=== PATIENT | male | born 1990 | race Caucasian/White ===

== ENCOUNTER 2020-06-16 13:32 | Emergency (ER) | payer BC, SELFPAY ==
[2020-06-16 13:33] VITALS: BP 148/94; PULSE 94; RESP 16; TEMP 37.1; O2SAT 99; BMI 42.3
[2020-06-16 14:03] VITALS: BP 152/89; PULSE 79; O2SAT 96
--- NOTE | 2020-06-16 14:07 | XR_ITS ---
PROCEDURE: XR CHEST PORTABLE CLINICAL HISTORY: cough COMPARISON: No exams were available for comparison FINDINGS: The cardiomediastinal silhouette and pulmonary vascularity are within normal limits. There is some patchy density in the left upper lobe. This may be related to overlying scapula and vessels. Upright PA and lateral chest may confirm. Deformity noted of the left 2nd rib IMPRESSION: Patchy density left upper lobe which may be due to summation artifact and could be confirmed with upright PA and lateral chest Dictated by: Avtar Barkley MD 06/16/2020 17:24 Avtar Barkley MD in [place] 06/16/2020 17:24
--- NOTE | 2020-06-16 14:09 | HMH.EDGENADL ---
ED Disposition Clinical Impression: Atypical pneumonia, COVID-19 Disposition: Home, Self-Care Condition on Discharge: Fair Instructions: Pneumonia-Adult, DI for Atypical Pneumonia, DI for COVID-19 (Suspected or Confirmed ) Additional Instructions: You have been evaluated for nausea and vomiting, as well as COVID-19. I have concern for a bacterial pneumonia. Please take azithromycin as prescribed. Use Phenergan for nausea and vomiting. Follow-up with your primary care physician. Return to the emergency department if you have new or worsening symptoms. Prescriptions: Promethazine HCl [Phenergan 12.5mg tablet] 12.5 mg PO Q8H PRN #12 tab PRN Reason: Vomiting Transmission Status: Pending to [facility] # Azithromycin [Z-[place] 250mg Tab*] 250 mg PO UD DOSE PK #6 tab Transmission Status: Pending to [facility] # Referrals: Sergei Chopra [Primary Care Provider] - Time of Disposition: 15:54 - Critical Care Critical Care Time: No Attestation: On 06/16/20, the high probability of a clinically significant, sudden or life threatening deterioration of the following system(s) required my full and direct attention, intervention and personal management. The time I documented below is in addition to time spent performing reported procedures but includes the following listed in this critical care notation. Medical Decision Making - Medical Records Medical records reviewed: Yes: I reviewed the patient's medical records. - Jayy Inquiry Pt receiving controlled substance: No Vital Signs: 06/16/20 13:33 06/16/20 14:03 Temperature 98.8 F Temperature Source Oral Pulse Rate [Right] 94 H 79 Respiratory Rate 16 Blood Pressure [Right Arm] 148/94 H 152/89 H Blood Pressure Mean [Right Arm] 112 110 Blood Pressure Source [Right Arm] Automatic Cuff Automatic Cuff Blood Pressure Position [Right Arm] Sitting Sitting 02 Sat by Pulse Oximetry 99 96 Oxygen Delivery Method Room Air Room Air - Lab Data Lab Results 06/16/20 14:39: WBC 4.1 L, RBC 5.72, Hgb 16.7, Hct 49.0, MCV 85.7, MCH 29.2, MCHC 34.1, RDW 13.7, Plt Count 143, MPV 9.0, Neut % (Auto) 53.2, Lymph % (Auto) 36.8, [place] % (Auto) 7.6, Eos % (Auto) 0.6, Baso % (Auto) 1.7, Neut # (Auto) 2.2, Lymph # (Auto) 1.5, [place] # (Auto) 0.3, Eos # (Auto) 0.0, Baso # (Auto) 0.1 06/16/20 14:39: Sodium 138, Potassium 4.3, Chloride 100, Carbon Dioxide 29, Anion Gap 13.3, BUN 14, Creatinine 1.20, Estimated Creat Clear 105, Estimated GFR 71, Est GFR ( Amer) 86, Glucose 80, Calcium 9.8, Ferritin 62.7, Total Bilirubin 0.6, AST 104 H, ALT 148 H, Alkaline Phosphatase 79, Troponin I < 0.01, C-Reactive Protein 5.3 H, Total Protein 7.9, Albumin 4.6, Globulin 3.3 H, Albumin/Globulin Ratio 1.4 Result diagrams: 06/16/20 14:39 06/16/20 14:39 Orders (Tests/Meds): ED MEDICATIONS Discontinued Medications Generic Name Dose Route Start Last Admin Trade Name Freq PRN Reason Stop Dose Admin Sodium Chloride 1,000 mls @ 999 mls/hr 06/16/20 14:15 06/16/20 14:31 Sod Chlor 0.9% 1000ml Bag IV 06/16/20 15:15 999 mls/hr .[id number] RANJANA Administration Promethazine HCl 12.5 mg 06/16/20 14:08 06/16/20 14:30 Promethazine Hcl 12.5mg Tablet PO 06/16/20 14:09 12.5 mg ONCE ONE Administration ORDERS Category Date Time Status CXR --portable [XR chest portable] Stat Exams 06/16/20 14:07 Taken Troponin I Q3H Lab 06/16/20 17:15 Ordered Troponin I Q3H Lab 06/16/20 20:15 Ordered EKG Request [ECG Request by /Gaurav] Stat Y 06/16/20 14:08 Ordered Medical Decision Narrative: In summary this is a 30-year-old male with diagnosis of COVID-19 presenting to the emergency department with nausea and vomiting. Patient clinically stable on arrival. Vital signs within normal limits. Initial oxygen saturation is 96%. No tachypnea or tachycardia. Most likely diagnosis is persistent COVID-19 infection. Cannot exclude dehydration, hyper inflammatory sy
[2020-06-16 14:56] LABS: Basophils # 0.1 K/mm3 (0-0.2); Basophils % 1.7 % (0.1-2.0); Eosinophils % 0.6 % (0.1-12.0); Hemoglobin 16.7 g/dL (14.1-18.0); Lymphocytes # 1.5 K/mm3 (0.7-4.5); Lymphocytes % 36.8 % (10-50); Mean Corpuscular HGB Conc 34.1 g/dL (31.8-35.4); Mean Corpuscular Hemoglobin 29.2 pg (27.0-31.2); Mean Corpuscular Volume 85.7 fl (80-94); Monocytes # 0.3 K/mm3 (0.1-1.0); Monocytes % 7.6 % (1.7-9.3); Neutrophils # 2.2 K/mm3 (1.8-7.8); Neutrophils % 53.2 % (37.0-80.0); Platelet Count 143 K/mm3 (142-424); Red Blood Count 5.72 M/mm3 (4.60-6.20); Red Cell Distribution Width 13.7 % (11.5-17.5); White Blood Count 4.1 K/mm3 (4.8-10.8)
[2020-06-16 15:08] LABS: Alanine Aminotransferase 148 U/L (12-78); Albumin Level 4.6 g/dl (3.5-5.0); Albumin/Globulin Ratio 1.4 (1.1-1.8); Alkaline Phosphatase 79 U/L (38-126); Anion Gap 13.3 mEq/L (5-15); Aspartate Amino Transferase 104 U/L (17-59); Bilirubin,Total 0.6 mg/dl (0.2-1.3); Blood Urea Nitrogen 14 mg/dl (9-20); Calcium 9.8 mg/dl (8.4-10.2); Carbon Dioxide 29 mmol/L (22.0-30.0); Creatinine Clearance Estimated 105 mL/min (50-200); Estimated Glomerular Filt Rate 71 ml/min (>60); GFR (African American) 86 ML/MIN (>60); Globulin 3.3 g/dL (1.3-3.2); Glucose 80 mg/dl (74-100); Potassium 4.3 mmoL/L (3.5-5.1); Total Protein,Serum 7.9 g/dl (6.3-8.2)
[2020-06-16 15:10] LABS: Chloride 100 mmol/L (98-107)
[2020-06-16 15:11] LABS: Sodium 138 mmol/L (136-145)
[2020-06-16 15:15] LABS: C-Reactive Protein 5.3 mg/L (0-4)
[2020-06-16 15:25] LABS: Troponin I < 0.01 ng/ml (0.00-0.034)
[2020-06-16 15:52] LABS: Ferritin 62.7 ng/ml (17.9-464)
[2020-06-16 16:49] VITALS: BP 142/78; PULSE 87; RESP 16; TEMP 36.6; O2SAT 98
== END 2020-06-16 16:52 | disposition home or self-care (01) ==
PROVIDERS: Emergency Provider Emergency Medicine; PCP Internal Medicine
DX: J18.9 Pneumonia, unspecified organism (principal); U07.1 COVID-19
CPT/HCPCS: 71045; 80053; 82728; 84484; 85025; 86140; 96365; 99283

== ENCOUNTER 2020-08-24 13:04 | Emergency (ER) | payer BC, SELFPAY ==
[2020-08-24 13:30] VITALS: BP 107/79; PULSE 87; RESP 19; TEMP 36.9; O2SAT 98; BMI 42.3
--- NOTE | 2020-08-24 14:05 | HMH.EDUTC ---
[facility] [place] Impression: Strep throat Disposition: Home, Self-Care Condition on Discharge: Good Instructions: DI for Strep Throat, Strep Throat, Strep Throat (Alternative Therapy), Amoxicillin Additional Instructions: *Monitor Temp, Over the counter Motrin or Tylenol as directed/as needed Tylenol every 4 hours and Motrin every 6 hours (as long as your family doctor has told you that you can take it) for fever or pain. and straight to ER if unable to lower temp less than 101.0 after medication given *Warm salt water gargles may help to soothe the throat *Throat Lozenges *Warm fluids like tea with honey may help to soothe the throat *Sleep elevated *Humidifier/Vaporizer If you did not take Penicillin shot or was unable to, start taking antibiotic immediately and make sure that you take it for the FULL length of time although you should start to feel better in 24-48 hours *change toothbrush and toothpaste 24-48 hours after starting to take antibiotics so you do not reinfect yourself Monitor Temp. Tylenol and/or Ibuprofen as needed. ER if fever is no less than 101 despite alternating Tylenol and Ibuprofen * Encourage fluids, water, Gatorade, powerade, pedialyte if infant/toddler/or child *Cold fluids, popsicles and ice cream may feel good on his throat Follow up IMMEDIATELY for new or worsening symptoms or no Noticeable improvement over the next 48-72 hours. 911 for difficulty breathing or swallowing Prescriptions: Amoxicillin [Amoxicillin 500mg Cap] 500 mg PO BID 10 Days #20 cap Transmission Status: Pending to [id number] Referrals: Sergei Chopra [Primary Care Provider] - As needed Forms: Work/School Release Time of Disposition: 14:11 Medical Decision Making - Jayy Inquiry Pt receiving controlled substance: No Jayy was queried for this patient: No Vital Signs: 08/24/20 13:30 Temperature 98.4 F Temperature Source Oral Pulse Rate [Right Brachial] 87 Respiratory Rate 19 Blood Pressure [Right Arm] 107/79 L Blood Pressure Mean [Right Arm] 88 Blood Pressure Source [Right Arm] Automatic Cuff Blood Pressure Position [Right Arm] Sitting 02 Sat by Pulse Oximetry 98 Oxygen Delivery Method Room Air - Lab Data Lab results reviewed: Yes: I reviewed the patient's lab results. Medical Decision Narrative: Patient state that he is allergic to Cefaclor but has taken Amoxicillin in the past without reactions or complications [facility] [place] - General Stated complaint: sore throat Time Seen by Provider: 08/24/20 14:06 Mode of Arrival: Ambulatory Source of Information: Patient Limitations: No Limitations Description of Symptoms (Recalled from Triage Doc. by RN): PATIENT C/O SORE THROAT SINCE THIS MORNING HEENT Symptoms (Recalled from RN notes): Yes Resp Symptoms (Recalled from RN notes): No Skin Symptoms (Recalled from RN notes): No MS Symptoms (Recalled from RN notes): No Functional Status (Recalled from RN notes): WNL - History of Present Illness Provider Complaint: Patient state that he woke up this morning having sore throat and body aches, State that his daughter was dx yesterday with Strep throat and thinks he may have now also - Related Data Previous Rx's Medication Instructions Recorded Azithromycin [Z-[place] 250mg Tab*] 250 mg PO UD DOSE PK #6 tab 06/16/20 Promethazine HCl [Phenergan 12.5mg 12.5 mg PO Q8H PRN #12 tab 06/16/20 tablet] Amoxicillin [Amoxicillin 500mg 500 mg PO BID 10 Days #20 cap 08/24/20 Cap] Allergies Allergy/AdvReac Type Severity Reaction Status Date / Time cefaclor [From [facility]] Allergy Verified 06/16/20 14:01 - Worker's Comp Is this a Worker's Comp case?: No [facility] History - Hepatitis A Screen Drug use history?: No High risk sexual behaviors?: No History of sexually transmitted infection?: No Currently employed?: No Childcare worker?: No Do you have indoor plumbing?: Yes Do you have electricity?: Yes Attestation stat
[2020-08-24 14:11] LABS: UTC Strep Screen (Rapid) Positive (Negative)
[2020-08-24 14:23] VITALS: BP 107/79; PULSE 87; RESP 19; TEMP 36.9; O2SAT 98
== END 2020-08-24 14:26 | disposition home or self-care (01) ==
PROVIDERS: Emergency Provider Nurse Practitioner; PCP Internal Medicine
DX: J02.0 Streptococcal pharyngitis (principal)
CPT/HCPCS: 87880; 99202; G0463